=== PATIENT | female | born 1935 | race Caucasian/White ===

== ENCOUNTER 2018-05-10 05:22 | Observation (INO) ==
--- NOTE | 2018-05-10 05:43 | ED ---
HPI General Chief Complaint: Fall Stated Complaint: Fall last Thurs/rib pain Time Seen by Provider: 05/10/18 05:41 Source: patient Mode of arrival: ambulatory Limitations: no limitations History of Present Illness HPI Narrative: Patient reports that 3 days ago she was walking and then she decided suddenly to run and she is not sure why but she tripped and fell and landed on her right elbow right knee hit her right confucianism and bruised her right breast she said she fell very hard and she has broken ribs before but now she feels as if she cannot breathe she does not appear tachypneic she does not appear to be in severe distress but she is complaining of pain to the elbow the knee the forehead and of the breast all on the right side patient is awake alert oriented 3 and ambulatory she took gabapentin to help alleviate the symptoms, she said the very old pain pills that did not work and she also took [id number] medications without any relief of her symptoms, She still has SOB subjective and right rib pain Related Data Home Medications Medication Instructions Recorded Confirmed levothyroxine 25 mcg PO DAILY 05/10/18 05/10/18 paroxetine HCl 30 mg PO DAILY 05/10/18 05/10/18 simvastatin 40 mg PO QPM 05/10/18 05/10/18 temazepam 15 lesion PO HS 05/10/18 05/10/18 Previous Rx's Medication Instructions Recorded ibuprofen 600 mg PO Q8HR PRN #14 tab 05/11/18 polyethylene glycol 3350 17 gm PO DAILY #31 ea 05/11/18 Allergies Allergy/AdvReac Type Severity Reaction Status Date / Time amoxicillin Allergy Severe TONGUE Verified 05/10/18 06:12 SWELLING, SORENESS diphenhydramine Allergy Severe MOUTH Verified 05/10/18 06:12 SWOLLEN, BLISTERS tetanus toxoid, adsorbed Allergy Severe LARGE Verified 05/10/18 06:12 SORES ON FACE adhesive Allergy Mild PAPER Verified 05/10/18 06:12 TAPE-REDNESS Sulfa (Sulfonamide Allergy Unknown Hives Verified 05/10/18 06:12 Antibiotics) Review of Systems Except as stated in HPI: all other systems reviewed are negative [facility] Social History Social History Substance History: No History of Abuse Second Hand Smoke Exposure: No Smoking Status: Never smoker How Often Do You Have a Drink Containing Alcohol: Never Recent Travel in [facility] within the Last 8 Weeks: No Recent Out of Country Travel within the Last 8 Weeks: No Exam Narrative Exam Narrative: GENERAL: pt is awake alert good historian , SKIN: Warm and dry. HEAD: Atraumatic. Normocephalic. EYES: Pupils equal and round. No scleral icterus. No injection or drainage. ENT: No nasal bleeding or discharge. Mucous membranes pink and moist. NECK: Trachea midline. No JVD. CARDIOVASCULAR: Regular rate and rhythm. RESPIRATORY: No accessory muscle use. right ribs tender lateral right side GASTROINTESTINAL: Abdomen soft, non-tender, nondistended. Hepatic and splenic margins not palpable. MUSCULOSKELETAL: Extremities without clubbing, cyanosis, or edema. No obvious deformities. NEUROLOGICAL: Awake and alert. No obvious cranial nerve deficits. Motor grossly within normal limits. Five out of 5 muscle strength in the arms and legs. Normal speech. PSYCHIATRIC: Appropriate mood and affect; insight and judgment normal. Course Initial Documented Vital Signs Temperature 97.8 F 05/10/18 05:31 Pulse Rate 56 L 05/10/18 05:31 Respiratory Rate 18 05/10/18 05:31 Blood Pressure 156/56 H 05/10/18 05:31 Pulse Oximetry 98 05/10/18 05:31 Last Documented Vital Signs Temperature 97.8 F 05/11/18 04:00 Pulse Rate 54 L 05/11/18 08:00 Respiratory Rate 27 H 05/11/18 08:00 Blood Pressure 147/73 H 05/11/18 08:00 Pulse Oximetry 100 05/11/18 04:00 Medical Decision Making [facility] Narrative Medical decision making narrative: Ct chest 4 rib fractures right side with small effusion will admit and cover antibiotics Differential Diagnosis Differential Diagnosis: rib fracturs single vs multiple vs lung contusion vs PNA wrist fracture vs other Lab Data Result diagrams: 05/10/18 07:30 05/10/18 07:30 Lab Results 05/10/18 05/10/18 05/10/18 Range/Units 06:20 07:30 07:30 CBC w Diff Auto diff final WBC 6.5 (4.0-11.0) th/mm3 RBC 3.64 L (4.00-5.30) mil/mm3 Hgb 11.8 (11.6-15.3) gm/dL Hct 36.2 (35.0-46.0) % MCV 99.4 (80.0-100.0) fL MCH 32.4 (27.0-34.0) pg MCHC 32.6 (32.0-36.0) % RDW 13.5 (11.6-17.2) % Plt Count 196 (150-450) th/mm3 MPV 8.2 (7.0-11.0) fL Neut % (Auto) 71.7 H (16.0-70.0) % Lymph % (Auto) 18.8 (9.0-44.0) % [place] % (Auto) 7.1 (0.0-8.0) % Eos % (Auto) 1.4 (0.0-4.0) % Baso % (Auto) 1.0 (0.0-2.0) % Neut # (Auto) 4.6 (1.8-7.7) th/mm3 Lymph # (Auto) 1.2 (1.0-4.8) th/mm3 [place] # (Auto) 0.5 (0.0-0.9) th/mm3 Eos # (Auto) 0.1 (0.0-0.4) th/mm3 Baso # (Auto) 0.1 (0.0-0.2) th/mm3 WBC Differential . Differential Comment . Sodium 139 (136-145) meq/L Potassium 4.3 (3.5-5.1) meq/L Chloride 106 (98-107) meq/L Carbon Dioxide 27.5 (21.0-32.0) meq/L Anion Gap 6 (5-15) meq/L BUN 19 H (7-18) mg/dL Creatinine 0.77 (0.50-1.00) mg/dL Estimated GFR 72 L (>89) mL/min Random Glucose 87 (74-106) mg/dL Calcium 9.1 (8.5-10.1) mg/dL Total Bilirubin 0.4 (0.2-1.0) mg/dL AST 37 (15-37) U/L ALT 24 (10-53) U/L Alkaline Phosphatase 55 (45-117) U/L Total Protein 6.9 (6.4-8.2) g/dL Albumin 3.8 (3.4-5.0) g/dL TSH (0.358-3.740) uIU/mL Ur Collection Type Clean catch Urine Color Yellow (Yellw/Straw) Urine Clarity Slightly cloudy (Clear) Urine pH 6.0 (5.0-8.5) Ur Specific [place] 1.010 (1.002-1.035) Urine Protein Negative (Neg-Trace) mg/dL Urine Glucose (UA) Negative (Negative) mg/dL Urine Ketones Negative (Negative) mg/dL Urine Occult Blood Negative (Negative) Urine Nitrate Negative (Negative) Urine Bilirubin Negative (Negative) Urine Urobilinogen 0.2 (Less than 2) mg/dL Ur Leukocyte Esterase Small H (Negative) Urine WBC 0-5 (0-5) /hpf Amorphous Sediment Moderate H (None) /hpf 05/10/18 Range/Units 07:31 CBC w Diff WBC (4.0-11.0) th/mm3 RBC (4.00-5.30) mil/mm3 Hgb (11.6-15.3) gm/dL Hct (35.0-46.0) % MCV (80.0-100.0) fL MCH (27.0-34.0) pg MCHC (32.0-36.0) % RDW (11.6-17.2) % Plt Count (150-450) th/mm3 MPV (7.0-11.0) fL Neut % (Auto) (16.0-70.0) % Lymph % (Auto) (9.0-44.0) % [place] % (Auto) (0.0-8.0) % Eos % (Auto) (0.0-4.0) % Baso % (Auto) (0.0-2.0) % Neut # (Auto) (1.8-7.7) th/mm3 Lymph # (Auto) (1.0-4.8) th/mm3 [place] # (Auto) (0.0-0.9) th/mm3 Eos # (Auto) (0.0-0.4) th/mm3 Baso # (Auto) (0.0-0.2) th/mm3 WBC Differential Differential Comment Sodium (136-145) meq/L Potassium (3.5-5.1) meq/L Chloride (98-107) meq/L Carbon Dioxide (21.0-32.0) meq/L Anion Gap (5-15) meq/L BUN (7-18) mg/dL Creatinine (0.50-1.00) mg/dL Estimated GFR (>89) mL/min Random Glucose (74-106) mg/dL Calcium (8.5-10.1) mg/dL Total Bilirubin (0.2-1.0) mg/dL AST (15-37) U/L ALT (10-53) U/L Alkaline Phosphatase (45-117) U/L Total Protein (6.4-8.2) g/dL Albumin (3.4-5.0) g/dL TSH 6.080 H (0.358-3.740) uIU/mL Ur Collection Type Urine Color (Yellw/Straw) Urine Clarity (Clear) Urine pH (5.0-8.5) Ur Specific [place] (1.002-1.035) Urine Protein (Neg-Trace) mg/dL Urine Glucose (UA) (Negative) mg/dL Urine Ketones (Negative) mg/dL Urine Occult Blood (Negative) Urine Nitrate (Negative) Urine Bilirubin (Negative) Urine Urobilinogen (Less than 2) mg/dL Ur Leukocyte Esterase (Negative) Urine WBC (0-5) /hpf Amorphous Sediment (None) /hpf Imaging Data Radiologist's impression: Head CT 05/10/18 05:43 CONCLUSION: No evidence of acute intracranial hemorrhage or acute calvarial fracture. . Chest CT 05/10/18 05:49 CONCLUSION: 1. Minimally displaced right inferior rib fractures. 2. Small right pleural effusion with simple appearing fluid. 3. No associated pneumothorax. Discharge Plan Discharge Disposition Patient Disposition: 30 Still Patient Discharge Condition Condition: Stable Discharge Order Discharge Orders: Discharge Order (Routine); Ordered 05/11/18 Ordered By: Anahi Downing Discharge Details Anticipated Discharge Date: 05/11/18 Diagnosis: Contusion of rib Physicians Team ED Provider: Jose Manuel Lombardo Primary Care Provider: Whit Johnson Attending Provider: Anahi Downing Other Providers: Michele Guerrero ; [employer] Status ED Status: Left Department Discharge Information Discharge Date/Time: 05/10/18 09:00
[2018-05-10 06:30] LABS: Bilirubin,Urine Negative (Negative); Clarity,Urine Slightly Cloudy (Clear); Color,Urine Yellow (Yellw/Straw); Glucose,Urine (UA) Negative (Negative); Leukocyte Esterase,Urine Small (Negative); Nitrite,Urine Negative (Negative); Urobilinogen,Urine 0.2 mg/dL (Less than 2)
[2018-05-10 06:34] LABS: Amorphous Sediment,Urine Moderate /hpf; WBC,Urine 0-5 /hpf (0-5)
--- NOTE | 2018-05-10 07:12 | CT ---
EXAM DATE: 05/10/2018 6:55 AM EDT AGE/SEX: 82 years / Female INDICATIONS: Trauma, patient fell last , rib pain. CLINICAL DATA: This is the patient's initial encounter. Patient reports that signs and symptoms have been present for 1 day and indicates a pain score of 7/10. MEDICAL/SURGICAL HISTORY: . High cholesterol, thyroid disease. . Unspecified eye surgery, spinal f usion. RADIATION DOSE: 6.21 CTDI (mGy) COMPARISON: No prior exams available for comparison. TECHNIQUE: Multiple contiguous axial images were obtained through the chest without contrast. Image s were obtained in suspended respiration using multiple row detector helical technique. Using automa ada exposure control and adjustment of the mA and/or kV according to patient size, radiation dose was kept as low as reasonably achievable to obtain optimal diagnostic quality images. DICOM format imag e data is available electronically for review and comparison. FINDINGS: Lungs: Mild bibasilar atelectasis, right greater than left. Mild biapical pleural-parenchymal scarri ng. No focal consolidation. Mediastinum: There is good visualization of the great vessels of the middle mediastinum. Atheroscler otic calcifications. Trace pericardial fluid. No evidence of mediastinal or hilar adenopathy/mass. Pleurae: Small right pleural effusion. The Hounsfield unit measurements suggest that this is simple fluid. Axillae: Unremarkable. Bony Structures: Minimally displaced fractures of the right posterolateral seventh, eighth, and 10th ribs. Degenerative changes of the spine. Miscellaneous: The examination was extended to include the upper abdomen, and both adrenal glands ar e normal in size and configuration. CONCLUSION: 1. Minimally displaced right inferior rib fractures. 2. Small right pleural effusion with simple appearing fluid. 3. No associated pneumothorax. Electronically signed by: Sue Fisher MD 05/10/2018 7:10 AM EDT
--- NOTE | 2018-05-10 07:20 | CT ---
EXAM DATE: 05/10/2018 6:55 AM EDT AGE/SEX: 82 years / Female INDICATIONS: Trauma, patient fell last , rib pain. CLINICAL DATA: This is the patient's initial encounter. Patient reports that signs and symptoms have been present for 1 day and indicates a pain score of 7/10. MEDICAL/SURGICAL HISTORY: . High cholesterol, thyroid disease. . Unspecified eye surgery, spinal f usion. RADIATION DOSE: 51.10 CTDI (mGy) COMPARISON: No prior exams available for comparison. TECHNIQUE: CT of the head without contrast. Using automated exposure control and adjustment of the mA and/or kV according to patient size, radiation dose was kept as low as reasonably achievable to ob tain optimal diagnostic quality images. DICOM format image data is available electronically for revi ew and comparison. FINDINGS: Cerebrum: The ventricles are normal for age. No evidence of midline shift, focal mass lesion, acute intracranial hemorrhage, or acute large vessel cortical infarction. No extraaxial fluid collections are seen. Posterior Fossa: The cerebellum and brainstem are intact. The 4th ventricle is midline. The cerebe llopontine angle is unremarkable. Extracranial: The visualized portion of the orbits is intact. Skull: The calvaria is intact. No evidence of skull fracture. CONCLUSION: No evidence of acute intracranial hemorrhage or acute calvarial fracture. . Electronically signed by: Sue Fisher MD 05/10/2018 7:19 AM EDT
[2018-05-10] MEDS ORDERED: Acetaminophen 325 MG Tablet PO PRN (07:21)
[2018-05-10] MEDS ORDERED: Bisacodyl 10 MG Supp RECTAL PRN (07:21)
[2018-05-10 07:41] LABS: Baso # (Auto) 0.1 th/mm3 (0.0-0.2); Eos # (Auto) 0.1 th/mm3 (0.0-0.4); Eos % (Auto) 1.4 % (0.0-4.0); Hematocrit 36.2 % (35.0-46.0); Hemoglobin 11.8 gm/dL (11.6-15.3); Lymph # (Auto) 1.2 th/mm3 (1.0-4.8); Lymph % (Auto) 18.8 % (9.0-44.0); Mean Corpuscular HGB Conc 32.6 % (32.0-36.0); Mean Corpuscular Hemoglobin 32.4 pg (27.0-34.0); Mean Corpuscular Volume 99.4 fL (80.0-100.0); Mean Platelet Volume 8.2 fL (7.0-11.0); Mono # (Auto) 0.5 th/mm3 (0.0-0.9); Mono % (Auto) 7.1 % (0.0-8.0); Neut # (Auto) 4.6 th/mm3 (1.8-7.7); Neut % (Auto) 71.7 % (16.0-70.0); Platelet Count 196 th/mm3 (150-450); Red Blood Count 3.64 mil/mm3 (4.00-5.30); Red Cell Distribution Width 13.5 % (11.6-17.2); White Blood Count 6.5 th/mm3 (4.0-11.0)
[2018-05-10 07:49] LABS: Chloride 106 meq/L (98-107); Potassium 4.3 meq/L (3.5-5.1); Sodium 139 meq/L (136-145)
[2018-05-10 07:52] LABS: Calcium 9.1 mg/dL (8.5-10.1)
[2018-05-10 07:53] LABS: Albumin 3.8 g/dL (3.4-5.0); Anion Gap 6 meq/L (5-15); Blood Urea Nitrogen 19 mg/dL (7-18); Carbon Dioxide 27.5 meq/L (21.0-32.0); Glucose,Random 87 mg/dL (74-106)
[2018-05-10 07:56] LABS: Alanine Aminotransferase 24 U/L (10-53); Aspartate Aminotransferase 37 U/L (15-37); Glomerular Filtration Rate 72 mL/min (>89)
[2018-05-10 07:58] LABS: Total Protein 6.9 g/dL (6.4-8.2)
[2018-05-10 07:59] LABS: Alkaline Phosphatase 55 U/L (45-117)
--- NOTE | 2018-05-10 10:14 | P.HPIM ---
History of Present Illness Primary Care Physician: Whit Johnson MD Chief Complaint: Fall with right-sided chest pain History of Present Illness: This patient is an 82-year-old female who is normally quite healthy and independent. She was walking and had a fall 3 days ago. She had progressive pain despite taking some old pain medication at home and so she came to the emergency room. The pain is severe worse with movement and limited to the right side of her chest. She did have imaging done in the emergency room which did show some minimally displaced right-sided rib fractures. Patient also had some pleural effusion. Notably she is quite bradycardic in the mid to high 40s. She reports previous episodes of dizziness and falls. She has never had any cardiac issues but does take levothyroxine for thyroid supplementation. She has chronic constipation and insomnia. She notes no trouble ambulating mechanically. She has had several episodes of rib fractures from falls and/or trauma in the past. Patient is recommended for further observation due to these issues - Diagnosis (1) Symptomatic bradycardia (2) Rib fracture Review of Systems All other systems reviewed negative except as stated in [facility]PI [facility] - History History Provided By: Patient - Medical History Medical History: Medical History (Last Reviewed 05/10/18 @ 10:10 by Anahi Downing MD) Depression High cholesterol Insomnia Thyroid disease - Surgical History Surgical History: Surgical History (Last Reviewed 05/10/18 @ 10:10 by Anahi Downing MD) H/O eye surgery Hx of spinal fusion - Tobacco History Second Hand Smoke Exposure: No Smoking Status: Never smoker - Alcohol History How Often Do You Have a Drink Containing Alcohol: Never - Substance Use History Substance History: No History of Abuse - Travel History Recent Travel in the [place] Within the Last 8 Weeks: No Recent Travel Out of the Country Within the Last 8 Weeks: No - Immunization History Tetanus Immunization: Never Vaccinated Medications and Allergies Active Medications: Active Medications Acetaminophen (Tylenol) 650 mg PO Q4H PRN PRN Reason: Temp > 100.4 Bisacodyl (Dulcolax Supp) 10 mg RECTAL DAILY PRN PRN Reason: SEVERE CONSITIPATION Lactulose (Lactulose Liq) 30 ml PO DAILY PRN PRN Reason: SEVERE CONSITIPATION Levothyroxine Sodium (Synthroid) 25 mcg PO DAILY@0600 [place] Metoclopramide HCl (Reglan Inj) 5 mg IV.PUSH Q6HR PRN; Protocol PRN Reason: NAUSEA OR VOMITING Miscellaneous (Pill Splitter) 1 each OTHER UNSCH [facility] Paroxetine HCl (Paxil) 30 mg PO DAILY [facility] Pravastatin Sodium (Pravachol) 80 mg PO DAILY@1800 [place] Temazepam (Restoril) 15 mg PO HS [facility] Allergies Allergy/AdvReac Type Severity Reaction Status Date / Time amoxicillin Allergy Severe TONGUE Verified 05/10/18 06:12 SWELLING, SORENESS diphenhydramine Allergy Severe MOUTH Verified 05/10/18 06:12 SWOLLEN, BLISTERS tetanus toxoid, adsorbed Allergy Severe LARGE Verified 05/10/18 06:12 SORES ON FACE adhesive Allergy Mild PAPER Verified 05/10/18 06:12 TAPE-REDNESS Sulfa (Sulfonamide Allergy Unknown Hives Verified 05/10/18 06:12 Antibiotics) Home Medications Medication Instructions Recorded Confirmed Type levothyroxine 25 mcg PO DAILY 05/10/18 05/10/18 History paroxetine HCl 30 mg PO DAILY 05/10/18 05/10/18 History simvastatin 40 mg PO QPM 05/10/18 05/10/18 History temazepam 15 lesion PO HS 05/10/18 05/10/18 History Exam Vital signs: Vital Signs 05/10/18 05:31 05/10/18 07:20 05/10/18 07:45 Temperature 97.8 F Pulse Rate 56 L 50 L 50 L Respiratory Rate 18 18 Blood Pressure 156/56 H 149/72 H Pulse Oximetry 98 95 99 Intake & Output 05/09/18 05/10/18 05/10/18 18:59 06:59 18:59 Weight 49.2 kg Other: # Voids 1 Narrative: GENERAL: Patient calm resting and without complaints SKIN: Warm and dry. No rashes or ecchymotic injuries EYES: Pupils equal and round. No scleral icterus. No injection or drainage. ENT: External ear exam normal. No acute nasal bleeding or discharge. Mucous membranes pink and moist. CARDIOVASCULAR: Sinus bradycardia. No murmurs gallops or rubs appreciated RESPIRATORY: Good air flow and effort without accessory muscle use. Clear to auscultation. Breath sounds equal bilaterally. GASTROINTESTINAL: Abdomen soft, non-tender, nondistended. Hepatic and splenic margins not palpable. MUSCULOSKELETAL: Extremities without clubbing, cyanosis, or edema. No obvious deformities. NEUROLOGICAL: Awake and alert. No obvious cranial nerve deficits. Motor grossly within normal limits. Five out of 5 muscle strength in the arms and legs. Normal speech. Results - Labs CBC & Chem 7: 05/10/18 07:30 05/10/18 07:30 Labs: Short CBC 05/10/18 Range/Units 07:30 WBC 6.5 (4.0-11.0) th/mm3 Hgb 11.8 (11.6-15.3) gm/dL Hct 36.2 (35.0-46.0) % Plt Count 196 (150-450) th/mm3 BMP 05/10/18 07:30 Sodium 139 Potassium 4.3 Chloride 106 Carbon Dioxide 27.5 BUN 19 H Creatinine 0.77 Calcium 9.1 Liver Function 05/10/18 Range/Units 07:30 Total Bilirubin 0.4 (0.2-1.0) mg/dL AST 37 (15-37) U/L ALT 24 (10-53) U/L Alkaline Phosphatase 55 (45-117) U/L Albumin 3.8 (3.4-5.0) g/dL Urine 05/10/18 Range/Units 06:20 Urine Color Yellow (Yellw/Straw) Urine Clarity Slightly cloudy (Clear) Urine pH 6.0 (5.0-8.5) Ur Specific [place] 1.010 (1.002-1.035) Urine Protein Negative (Neg-Trace) mg/dL Urine Glucose (UA) Negative (Negative) mg/dL - Imaging Impressions Head CT 05/10/18 05:43 CONCLUSION: No evidence of acute intracranial hemorrhage or acute calvarial fracture. . Chest CT 05/10/18 05:49 CONCLUSION: 1. Minimally displaced right inferior rib fractures. 2. Small right pleural effusion with simple appearing fluid. 3. No associated pneumothorax. Caprini VTE Risk Assessment Caprini VTE Risk Assessment: Moderate/High Risk (score >= 2) VTE Pharmacological Exception Reason: High risk for bleeding Caprini Risk Assessment Model: Point Value = 1 Point Value = 2 Point Value = 3 Point Value = 5 Age 41-60 Minor surgery BMI > 25 kg/m2 Swollen legs Varicose veins or History of unexplained or recurrent spontaneous Oral contraceptives or hormone replacement Sepsis (< 1 month) Serious lung disease, including pneumonia (< 1 month) Abnormal pulmonary function Acute myocardial infarction Congestive heart failure (< 1 month) History of inflammatory bowel disease Medical patient at bed rest Age 61-74 Arthroscopic surgery Major open surgery (> 45 min) Laparoscopic surgery (> 45 min) Malignancy Confined to bed (> 72 hours) Immobilizing plaster cast Central venous access Age >= 75 History of VTE Family history of VTE Factor V Leiden Prothrombin [id number] Lupus anticoagulant Anticardiolipin antibodies Elevated serum homocysteine Heparin-induced thrombocytopenia Other congenital or acquired thrombophilia Stroke (< 1 month) Elective arthroplasty Hip, pelvis, or leg fracture Acute spinal cord injury (< 1 month) Prophylaxis Regimen: Total Risk Factor Score Risk Level Prophylaxis Regimen 0-1 Low Early ambulation 2 Moderate Order ONE of the following: *Sequential Compression Device (SCD) *Heparin 5000 units SQ BID 3-4 Higher Order ONE of the following medications: *Heparin 5000 units SQ TID *Enoxaparin/Lovenox 40 mg SQ daily (WT < 150 kg, CrCl > 30 mL/min) *Enoxaparin/Lovenox 30 mg SQ daily (WT < 150 kg, CrCl > 10-29 mL/min) *Enoxaparin/Lovenox 30 mg SQ BID (WT < 150 kg, CrCl > 30 mL/min) AND/OR *Sequential Compression Device (SCD) 5 or more Highest Order ONE of the following medications: *Heparin 5000 units SQ TID (Preferred with Epidurals) *Enoxaparin/Lovenox 40 mg SQ daily (WT < 150 kg, CrCl > 30 mL/min) *Enoxaparin/Lovenox 30 mg SQ daily (WT < 150 kg, CrCl > 10-29 mL/min) *Enoxaparin/Lovenox 30 mg SQ BID (WT < 150 kg, CrCl > 30 mL/min) AND *Sequential Compression Device (SCD) Assessment and Plan - Assessment (1) Symptomatic bradycardia Code(s): R00.1 - Bradycardia, unspecified Status: Acute Plan: Patient with a heart rate in the high 40s, dizziness and falls, continue telemetry Follow-up echo and EKG Cardiology consult pending Follow-up TSH (2) Rib fracture Code(s): S22.39XA - Fracture of one rib, unspecified side, initial encounter for closed fracture Status: Acute Plan: Continue with supportive care with incentive spirometry and anti-inflammatory H&P: Quality - VTE Deep Vein Thrombosis/Pulmonary Embolism Present on Admission: No
--- NOTE | 2018-05-10 13:02 | MB ---
cc: Milton Lee MD DATE: 05/10/2018 REASON FOR CONSULTATION: Bradycardia. HISTORY OF PRESENT ILLNESS: The patient is a very pleasant 82-year-old woman who is generally healthy, but lately has been having multiple falls. They sound somewhat mechanical/neurologic. She does describe the sensation of running for step or two before she falls usually without any associated dizziness or lightheadedness. She did have 1 episode of taking her sleeping pill and that elicited the most recent fall and at that point, she did feel woozy prior to her fall, but generally she has not had this symptom. She does note other time she feels orthostatic when getting out of the car, but this passes and she has not had any true syncope. PAST MEDICAL HISTORY: Depression, thyroid disease. CURRENT MEDICATIONS: 1. Synthroid. 2. Reglan. ALLERGIES: MULTIPLE. PLEASE SEE THE CHART. PHYSICAL EXAMINATION: VITAL SIGNS: Afebrile, pulse 50, respiratory rate 18, BP 149/72, saturating 99.2 liters. GENERAL: Pleasant, elderly woman, in no distress. NECK: No JVD. LUNGS: Clear to auscultation bilaterally. CARDIOVASCULAR: Somewhat bradycardic, but regular. No murmurs appreciated. ABDOMEN: Benign. EXTREMITIES: No edema. LABORATORY DATA: White count 6.5, hematocrit 36.2, platelets 196. Sodium 139, potassium 4.3, chloride 106, bicarbonate 27.5, BUN 19, creatinine 0.77, glucose 87. EKG shows sinus bradycardia at 45. Telemetry shows sinus bradycardia generally in the mid 50s to low 60s. IMPRESSION: Bradycardia. It is unclear if the patient's sinus bradycardia is related to her mostly mechanical sounding falls, although she does have some symptoms orthostasis. Nonetheless, I did offer a loop recorder to get a better sense of her heart rhythm during any of these potential episodes or even the pacemaker if she felt she particularly wanted it, but she declines both these procedures and elects for careful watchful waiting. Thus, since she declines these procedures, she can be discharged from a cardiac standpoint and can followup with me in the office in a couple weeks for outpatient testing. Thank you again for the opportunity to participate in this patient's care. MD OLESYA Kong/CHARLIE , 12:47 PM , 12:54 PM
[2018-05-10] MEDS: Polyethylene Glycol 3350 17 GM Packet PO SCH (13:17)
[2018-05-10] MEDS: Ibuprofen 600 MG Tablet PO SCH ×2 (13:17→22:30)
--- NOTE | 2018-05-10 20:12 | ECHRPT ---
Indication: CARDIOMYOPATHY CONCLUSIONS Normal left ventricular size. Wall thickness is normal. The left ventricular systolic function is hyperdynamic with an estimated ejection fraction in the ra nge of 65- 70%. No regional wall motion abnormalities are present. Trace mitral valve regurgitation. Minimal aortic valve sclerosis is present. Trace aortic valve regurgitation. There is mild tricuspid valve regurgitation. The estimated pulmonary arterial pressure is 34 mmHg. Trace pericardial effusion. BP: / HR: Rhythm: MEASUREMENTS (Male / Female) Normal Values Technical Quality: 2D ECHO LV Diastolic Diameter PLAX 3.5 cm 4.2 - 5.9 / 3.9 - 5.3 cm LV Systolic Diameter PLAX 2.8 cm IVS Diastolic Thickness 0.9 cm 0.6 - 1.0 / 0.6 - 0.9 cm LVPW Diastolic Thickness 0.9 cm 0.6 - 1.0 / 0.6 - 0.9 cm LV Relative Wall Thickness 0.5 RV Internal Dim ED PLAX 1.9 cm LVOT Diameter 1.8 cm Aortic Root Diameter 3.7 cm LA Systolic Diameter LX 2.8 cm 3.0 - 4.0 / 2.7 - 3.8 cm M-MODE AV Cusp Separation MM 2.0 cm DOPPLER AV Peak Velocity 165.0 cm/s AV Peak Gradient 10.9 mmHg AV Mean Gradient 5.0 mmHg AV Velocity Time Integral 36.8 cm AI Peak Velocity 359.0 cm/s AI Peak Gradient 51.6 mmHg AI Pressure Half Time 660.0 ms LVOT Peak Velocity 143.0 cm/s LVOT Peak Gradient 8.2 mmHg LVOT Velocity Time Integral 22.3 cm AV Area Cont Eq vti 1.5 cm AV Area Cont Eq pk 2.2 cm LV E' Lateral Velocity 8.3 cm/s LV E' Septal Velocity 8.3 cm/s TR Peak Velocity 246.0 cm/s TR Peak Gradient 24.2 mmHg Right Atrial Pressure 10.0 mmHg Pulmonary Artery Systolic Pressu 34.2 mmHg Right Ventricular Systolic Press 34.2 mmHg PV Peak Velocity 48.1 cm/s PV Peak Gradient 0.9 mmHg FINDINGS LEFT VENTRICLE Normal left ventricular size. Wall thickness is normal. The left ventricular systolic function is hyperdynamic with an estimated ejection fraction in the ra nge of 65- 70%. No regional wall motion abnormalities are present. RIGHT VENTRICLE Normal right ventricular size and systolic function. LEFT ATRIUM The left atrial size is normal. RIGHT ATRIUM The right atrial size is normal. ATRIAL SEPTUM No atrial level shunt is demonstrated by color flow Doppler interrogation. AORTA The aortic root and proximal ascending aorta are normal in size on limited imaging. MITRAL VALVE Trace mitral valve regurgitation. AORTIC VALVE Minimal aortic valve sclerosis is present. Trace aortic valve regurgitation. TRICUSPID VALVE There is mild tricuspid valve regurgitation. The estimated pulmonary arterial pressure is 34 mmHg. PULMONARY VALVE Trivial pulmonary valve regurgitation. VESSELS The inferior vena cava is normal in size. PERICARDIUM Trace pericardial effusion. Michele Guerrero MD (Electronically Signed) Final Date:10 May 2018 20:10
[2018-05-10 20:50] VITALS: O2SAT 100
[2018-05-10] MEDS ORDERED: Temazepam 15 MG Capsule PO SCH (21:00)
[2018-05-11 04:40] VITALS: TEMP 97.8
[2018-05-11] MEDS: Ibuprofen 600 MG Tablet PO SCH (06:19)
--- NOTE | 2018-05-11 08:59 | ECG ---
Date Performed: 05/10/2018 Time Performed: 10:36:20 PTAGE: 82 years EKG: SINUS BRADYCARDIA BORDERLINE ECG PREVIOUS TRACING : 04/26/2010 16.34 Since the previous tracing, no significant change noted DOCTOR: Milton Lee Interpretating Date/Time 05/11/2018 08:58:34
[2018-05-11] MEDS: Polyethylene Glycol 3350 17 GM Packet PO SCH (09:14)
--- NOTE | 2018-05-11 09:22 | P.PNIM ---
Subjective Interval history: Patient seen and evaluated in follow-up for symptomatic bradycardia and rib fractures. Doing much better. Ibuprofen has controlled the pain. Constipation is resolving as well. Cardiology consultation appreciated. Patient has opted for conservative measures and will follow-up as an outpatient. No events overnight. Physical Exam Vital signs: Vital Signs 05/10/18 10:00 05/10/18 14:00 05/10/18 16:00 Temperature 97.9 F Pulse Rate 46 L 68 52 L Respiratory Rate 22 42 H 30 H Blood Pressure 146/68 H 110/54 L 116/67 Pulse Oximetry 05/10/18 19:25 05/10/18 20:00 05/11/18 00:00 Temperature 98.4 F 98.3 F Pulse Rate 57 L 55 L Respiratory Rate 24 21 Blood Pressure 130/63 128/69 Pulse Oximetry 95 100 100 05/11/18 04:00 Temperature 97.8 F Pulse Rate 55 L Respiratory Rate 21 Blood Pressure 156/78 H Pulse Oximetry 100 Intake & Output 05/10/18 05/11/18 05/11/18 18:59 06:59 18:59 Intake Total 960 / 960 Output Total 6 / 6 Balance 960 / 960 -6 / -6 Weight 47.5 kg 50.3 kg Intake: Oral 960 / 960 Output: Urine / 6 Other: # Voids 5 Weight On Admission 47.5 kg Narrative: GENERAL: Well-nourished, well-developed patient. SKIN: Warm and dry. HEAD: Normocephalic. EYES: No scleral icterus. No injection or drainage. NECK: Supple, trachea midline. No JVD or lymphadenopathy. CARDIOVASCULAR: Sinus bradycardia without murmurs, gallops, or rubs. RESPIRATORY: Breath sounds equal bilaterally. No accessory muscle use. GASTROINTESTINAL: Abdomen soft, non-tender, nondistended. MUSCULOSKELETAL: No cyanosis, or edema. BACK: Nontender without obvious deformity. No CVA tenderness. NEUROLOGICAL: Awake and alert. Cranial nerves II through XII intact. Motor and sensory grossly within normal limits. Five out of 5 muscle strength in all muscle groups. Normal speech. Results - Labs CBC & Chem 7: 05/10/18 07:30 05/10/18 07:30 Laboratory Results - last 24 hr 05/10/18 07:31 TSH 6.080 H Assessment and Plan - Assessment (1) Symptomatic bradycardia Code(s): R00.1 - Bradycardia, unspecified Status: Acute Plan: Patient with a heart rate in the high 40s, dizziness and falls, continue telemetry Follow-up echo and EKG Cardiology consult appreciated. Patient has declined implanted loop device and or pacemaker assessment, continue with medical management Normal TSH (2) Rib fracture Code(s): S22.39XA - Fracture of one rib, unspecified side, initial encounter for closed fracture Status: Acute Plan: Continue with supportive care with incentive spirometry and anti-inflammatory - Plan Discharge Planning: dc home regular diet activity as tolerated
[2018-05-11 10:52] VITALS: BP 147/73; PULSE 54; RESP 27
== END 2018-05-11 10:58 | disposition home or self-care (01) ==
LOC: PHICU 05:22 → PHEDA 05:22 → PHED 05:22 → PHICU 09:00
PROVIDERS: ADMIT Hospitalist; ATTEND Hospitalist
DX: R29.6 Repeated falls; R94.31 Abnormal electrocardiogram [ECG] [EKG]; R00.1 Bradycardia, unspecified; Z88.8 Allergy status to other drugs, medicaments and biological substances; J90 Pleural effusion, not elsewhere classified; Z88.0 Allergy status to penicillin; G47.00 Insomnia, unspecified; W19.XXXA Unspecified fall, initial encounter; E78.00 Pure hypercholesterolemia, unspecified; K59.09 Other constipation; Z98.1 Arthrodesis status; S22.41XA Multiple fractures of ribs, right side, initial encounter for closed fracture; R06.00 Dyspnea, unspecified; Z88.2 Allergy status to sulfonamides